=== PATIENT | male | born 1955 | race Caucasian/White ===

== ENCOUNTER 2017-10-29 09:35 | Outpatient (CLI) | payer MEDICARE ==
--- NOTE | 2017-10-29 11:58 | RAD ---
RIGHT HIP 2 VIEWS: Date: 10/29/17 HISTORY: Patient fell with right hip pain. FINDINGS: Total hip prosthesis is in good position. No evidence of fracture. IMPRESSION: No acute injury. POS: KATHERIN
--- NOTE | 2017-10-29 11:58 | RAD ---
LEFT HIP 2 VIEWS: Date: 10/29/17 HISTORY: Patient fell yesterday, having hip pain. FINDINGS: There appears to be soft tissue injury present. The left hip prosthesis is in good position. There ar e no signs of fracture or loosening. IMPRESSION: No evidence of fracture. POS: MORRIS
== END 2017-10-29 09:36 | disposition home or self-care (01) ==
LOC: SCSRAD 09:35
PROVIDERS: ATTEND Psychiatry & Neurology Neurology
DX: M25.559 Pain in unspecified hip (principal)